=== PATIENT | male | born 1950 | race Caucasian/White ===

== ENCOUNTER → 2016-06-15 | Outpatient (CLI) | payer MEDICARE, OTHER | LOC: KOH-I 15:00 | DX: R06.02 Shortness of breath (principal); E78.2 Mixed hyperlipidemia; I10 Essential (primary) hypertension; R23.8 Other skin changes | CPT/HCPCS: 36415; 71020; 71275; 83880; 85379; Q9963 ==

== ENCOUNTER 2020-04-24 13:40 | Emergency (ER) | payer MEDICARE, OTHER | END 2020-04-24 16:00 | disposition home or self-care (01) | LOC: ER1 13:40 | DX: U07.1 COVID-19 (principal); I10 Essential (primary) hypertension; Z88.0 Allergy status to penicillin; Z53.20 Procedure and treatment not carried out because of patient's decision for unspecified reasons | CPT/HCPCS: 99283; U0002 ==

== ENCOUNTER → 2020-09-09 | Outpatient (CLI) | payer MEDICARE, OTHER | LOC: US 14:06 | DX: R10.32 Left lower quadrant pain (principal); N50.819 Testicular pain, unspecified; N43.3 Hydrocele, unspecified; R39.198 Other difficulties with micturition | CPT/HCPCS: 76857; 76870 ==

== ENCOUNTER 2021-04-05 09:35 | Emergency (ER) | payer MEDICARE, OTHER ==
[2021-04-05 10:12] LABS: HEMOGLOBIN 15.9 gm/dl (14.0-17.5); RED BLOOD COUNT 5.35 M/UL (4.20-5.50); WHITE BLOOD COUNT 8.5 K/UL (4.5-11.0)
[2021-04-05 10:28] LABS: BUN/CREATININE RATIO 20 (0-10)
== END 2021-04-05 12:40 | disposition home or self-care (01) ==
LOC: ER1 09:35
PROVIDERS: Emergency Medicine
DX: J20.9 Acute bronchitis, unspecified (principal); N28.1 Cyst of kidney, acquired
CPT/HCPCS: 80048; 85025; 99284; Q9967

== ENCOUNTER → 2021-07-07 | Outpatient (CLI) | payer MEDICARE, OTHER ==
[2021-07-07 09:46] LABS: BUN/CREATININE RATIO 18 (0-10)
== END ==
LOC: LAB 08:44
PROVIDERS: Emergency Medicine
DX: I10 Essential (primary) hypertension (principal); E78.2 Mixed hyperlipidemia
CPT/HCPCS: 36415; 80053